=== PATIENT | female | born 1940 | race Caucasian/White ===

== ENCOUNTER 2017-10-30 08:00 | Outpatient (CLI) | payer MEDICARE, BC | END 2017-10-30 08:01 | disposition home or self-care (01) | LOC: BICMAMMO 08:00 | PROVIDERS: ATTEND Internal Medicine | DX: Z12.31 Encounter for screening mammogram for malignant neoplasm of breast (principal) | CPT/HCPCS: 77063 ==

== ENCOUNTER 2018-03-01 15:49 | Emergency (ER) | payer MEDICARE, BC ==
--- NOTE | 2018-03-01 18:47 | ULT ---
ULTRASOUND WITH DOPPLER DUPLEX VENOUS LOWER EXTREMITIES BILATERAL: 03/01/18 HISTORY: 78-year-old female with bilateral lower extremity pain, right worse than left, and right lower extrem ity edema. TECHNIQUE: Color flow Doppler, spectral waveform analysis of pulsed Doppler, and williamson-scale imaging with jimmy dann and augmentation, were used to evaluate the bilateral common femoral, femoral, popliteal, slip caster ior tibial, and superficial femoral, veins; and the proximal portions of the profunda femoral and gre ater saphenous, veins. FINDINGS: There is normal compressibility, demonstration of blood flow by color Doppler and pulsed Doppler, and response to augmentation, in all interrogated veins. There is thrombus causing noncompressibility, a bsence of blood flow, and expansion, of a superficial vein in the right medial calf. IMPRESSION: 1. No deep vein thrombosis in the bilateral lower extremities. 2. Positive for superficial thrombophlebitis at the right calf. jn[] POS: [facility]
== END 2018-03-01 18:50 | disposition home or self-care (01) ==
LOC: ERS 15:49
DX: I80.01 Phlebitis and thrombophlebitis of superficial vessels of right lower extremity (principal); E11.9 Type 2 diabetes mellitus without complications; I10 Essential (primary) hypertension; F32.9 Major depressive disorder, single episode, unspecified; Z79.899 Other long term (current) drug therapy; Z79.82 Long term (current) use of aspirin
CPT/HCPCS: 93970

== ENCOUNTER 2018-10-26 14:35 | Outpatient (CLI) | payer MEDICARE, BC ==
--- NOTE | 2018-10-26 16:01 | MRI ---
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 Right shoulder pain off and on for several years, getting worse. TECHNIQUE: Multiplanar, multisequence MRI exam of right shoulder performed. FINDINGS: Marked AC joint arthrosis changes are noted with some prominent subchondral cystic changes. Small amy unt of subacromial bursal fluid. There is a somewhat irregular full thickness tear of the supraspinat us tendon insertion region measuring approximately 1.0 cm transversely without significant associated retraction. There is some associated supraspinatus and infraspinatus tendinopathy. The biceps tendon is somewhat thinned and has almost a bilobed appearance as it exits the bicipital groove and extendi ng interarticularly, possibly a partial thickness split-type tear. Labrum is poorly defined and blunt ed, evidence for degenerative fraying or degenerative type labral tear. Minimal glenoid subchondral c ystic changes are noted. Rotator cuff muscles demonstrate mild supraspinatus muscle volume loss. IMPRESSION: 1. 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 2. Irregular full thickness tear of the supraspinatus tendon insertion region without significant re traction. 3. Blunting and indistinction of the superior labrum. 4. Possible at least partial thickness split-type tear of the biceps tendon as it exits the bicipita l groove extending interarticularly. 5. Minimal glenoid subchondral cystic changes. POS: [facility]
== END 2018-10-26 14:36 | disposition home or self-care (01) ==
LOC: BICMRI 14:35
PROVIDERS: ATTEND Orthopaedic Surgery
DX: M75.101 Unspecified rotator cuff tear or rupture of right shoulder, not specified as traumatic (principal); M19.011 Primary osteoarthritis, right shoulder

== ENCOUNTER 2018-11-01 13:26 | Outpatient (CLI) | payer MEDICARE, BC | END 2018-11-01 13:27 | disposition home or self-care (01) | LOC: BICMAMMO 13:26 | PROVIDERS: ATTEND Internal Medicine | DX: Z12.31 Encounter for screening mammogram for malignant neoplasm of breast (principal) | CPT/HCPCS: 77063; 77067 ==

== ENCOUNTER 2019-09-27 12:28 | Day surgery (SDC) | payer MEDICARE, BC ==
[2019-09-26 14:15] VITALS: BMI 28.0
[2019-09-27] MEDS ORDERED: Sodium Bicarbonate 2.5 MEQ/5 ML VIAL ONE (12:39)
[2019-09-27] MEDS ORDERED: Lidocaine 1% PF 5 ML VIAL ONE (12:39)
[2019-09-27 14:21] VITALS: BP 149/62; TEMP 98.2
--- NOTE | 2019-09-27 15:20 | ULT ---
ULTRASOUND-GUIDED FINE-NEEDLE ASPIRATION BIOPSY THYROID: DATE: 09/27/2019 HISTORY: 79-year-old female with right thyroid nodule. TECHNIQUE: Patient has allergy to multiple different medications, including lidocaine. She described symptoms th at appears to have been laryngospasm after prior lidocaine injection for dental procedure. After lengthy discussion with her, the patient agreed to have the biopsy performed without local anesthetic . Anterior skin of neck was prepared and draped in usual sterile fashion. Under ultrasound guidance, a series of 4 separate 25 gauge needles mounted on 4 separate 5 mL syringes were used to as pirate the large dominant nodule in the right lobe of the thyroid gland. Each sample was given to the chemical laboratory assistant. Patient tolerated procedure well. No complications. IMPRESSION: Technically successful 25-gauge fine-needle aspiration biopsy x4 of the large dominant right thyroid nodule.
== END 2019-09-27 14:05 | disposition home or self-care (01) ==
LOC: ULT 12:28
PROVIDERS: ATTEND Otolaryngology Plastic Surgery within the Head & Neck
DX: E04.1 Nontoxic single thyroid nodule (principal); E89.0 Postprocedural hypothyroidism; I10 Essential (primary) hypertension; E78.00 Pure hypercholesterolemia, unspecified; E11.9 Type 2 diabetes mellitus without complications; I48.92 Unspecified atrial flutter; J34.89 Other specified disorders of nose and nasal sinuses; J45.909 Unspecified asthma, uncomplicated; K21.9 Gastro-esophageal reflux disease without esophagitis; M06.9 Rheumatoid arthritis, unspecified; Z88.0 Allergy status to penicillin; Z88.1 Allergy status to other antibiotic agents; Z88.2 Allergy status to sulfonamides; Z88.7 Allergy status to serum and vaccine; Z88.8 Allergy status to other drugs, medicaments and biological substances; Z91.041 Radiographic dye allergy status; Z79.82 Long term (current) use of aspirin; Z79.84 Long term (current) use of oral hypoglycemic drugs; Z79.899 Other long term (current) drug therapy
CPT/HCPCS: 60100; 76942; 88173; J2001

== ENCOUNTER 2019-11-04 13:51 | Outpatient (CLI) | payer MEDICARE, BC ==
--- NOTE | 2019-11-04 15:34 | MMO ---
Bilateral MAMMO Bilat Screen [facility]. CLINICAL HISTORY: Patient is 79 years old and is seen for screening. The patient has no family history of breast cancer. The patient has no personal history of cancer. The patient has a history of left Excisional Biopsy in 2007 - benign. VIEWS: The views performed were: bilateral craniocaudal with tomosynthesis and bilateral mediolateral oblique with tomosynthesis. FILMS COMPARED: The present examination has been compared to prior imaging studies performed at [facility] on 10/26/2015, 10/27/2016, 10/30/2017 and 11/01/2018. This study has been interpreted with the assistance of computer-aided detection. MAMMOGRAM FINDINGS: The breasts are heterogeneously dense, which could obscure a lesion on mammography. There is a new round mass measuring 6 millimeters seen in the CC view only seen in the outer region of the right breast. In the left breast, there are no suspicious masses, calcifications or areas of architectural distortion. IMPRESSION: NEW MASS IN THE RIGHT BREAST REQUIRES ADDITIONAL EVALUATION. ADDITIONAL IMAGING. THE RESULTS OF THIS EXAM WERE SENT TO THE PATIENT. ACR BI-RADS Category 0 - Incomplete: Need additional imaging evaluation. [facility] will notify the patient of the need for additional imaging services. MAMMOGRAPHY NOTE: 1. A negative mammogram report should not delay a biopsy if a dominant of clinically suspicious mass is present. 2. Approximately 10% to 15% of breast cancers are not detected by mammography. 3. Adenosis and dense breasts may obscure an underlying neoplasm. Reported by: HILARIO CLEANING MD Electonically Signed: [id number]
== END 2019-11-04 13:52 | disposition home or self-care (01) ==
LOC: BICMAMMO 13:51
PROVIDERS: ATTEND Internal Medicine
DX: Z12.31 Encounter for screening mammogram for malignant neoplasm of breast (principal); Z91.89 Other specified personal risk factors, not elsewhere classified; N63.10 Unspecified lump in the right breast, unspecified quadrant
CPT/HCPCS: 77063; 77067

== ENCOUNTER 2019-11-14 13:37 | Outpatient (CLI) | payer MEDICARE, BC ==
--- NOTE | 2019-11-14 14:10 | MMO ---
Right Breast MAMMO Unilat Diag [facility]. CLINICAL HISTORY: Patient is 79 years old and is seen for diagnostic exam. The patient has no family history of breast cancer. The patient has no personal history of cancer. The patient has a history of left Excisional Biopsy in 2007 - benign. VIEWS: The views performed were: right craniocaudal with tomosynthesis; right mediolateral oblique with tomosynthesis; and right mediolateral with tomosynthesis. FILMS COMPARED: The present examination has been compared to prior imaging studies performed at [facility] on 10/27/2016, 10/30/2017, 11/01/2018 and 11/04/2019. This study has been interpreted with the assistance of computer-aided detection. MAMMOGRAM FINDINGS: The breast is heterogeneously dense, which could obscure a lesion on mammography. There is an intramammary lymph node seen in the outer region of the right breast. This represents the screening finding. There are no suspicious masses, suspicious calcifications, or new areas of architectural distortion. IMPRESSION: THERE IS NO MAMMOGRAPHIC EVIDENCE OF MALIGNANCY. A ROUTINE FOLLOW-UP MAMMOGRAM IN 1 YEAR IS RECOMMENDED. THE RESULTS OF THIS EXAM WERE SENT TO THE PATIENT. ACR BI-RADS Category 2 - Benign finding MAMMOGRAPHY NOTE: 1. A negative mammogram report should not delay a biopsy if a dominant of clinically suspicious mass is present. 2. Approximately 10% to 15% of breast cancers are not detected by mammography. 3. Adenosis and dense breasts may obscure an underlying neoplasm. Reported by: NICHO MEDINA MD Electonically Signed: [id number]
== END 2019-11-14 13:38 | disposition home or self-care (01) ==
LOC: BICMAMMO 13:37
PROVIDERS: ATTEND Internal Medicine
DX: N63.10 Unspecified lump in the right breast, unspecified quadrant (principal)
CPT/HCPCS: 77065; G0279

== ENCOUNTER 2020-11-09 14:18 | Outpatient (CLI) | payer MEDICARE, OTHER ==
--- NOTE | 2020-11-09 14:49 | MMO ---
Bilateral MAMMO Bilat Diag [facility]. CLINICAL HISTORY: Patient is 80 years old and is seen for diagnostic exam. The patient has no family history of breast cancer. The patient has no personal history of cancer. The patient has a history of left Excisional Biopsy in 2007 - benign. VIEWS: The views performed were: bilateral craniocaudal with tomosynthesis; bilateral mediolateral oblique with tomosynthesis; and bilateral mediolateral with tomosynthesis. FILMS COMPARED: The present examination has been compared to prior imaging studies performed at [facility] [place] on 10/30/2017, 11/01/2018, 11/04/2019 and 11/14/2019. This study has been interpreted with the assistance of computer-aided detection. MAMMOGRAM FINDINGS: The breasts are heterogeneously dense, which could obscure a lesion on mammography. There are no suspicious masses, suspicious calcifications, or new areas of architectural distortion. IMPRESSION: THERE IS NO MAMMOGRAPHIC EVIDENCE OF MALIGNANCY. A ROUTINE FOLLOW-UP MAMMOGRAM IN 1 YEAR IS RECOMMENDED. THE RESULTS OF THIS EXAM WERE SENT TO THE PATIENT. ACR BI-RADS Category 1 - Negative MAMMOGRAPHY NOTE: 1. A negative mammogram report should not delay a biopsy if a dominant of clinically suspicious mass is present. 2. Approximately 10% to 15% of breast cancers are not detected by mammography. 3. Adenosis and dense breasts may obscure an underlying neoplasm. Reported by: JANKI PEREZ MD Electonically Signed: [id number]
== END 2020-11-09 14:19 | disposition home or self-care (01) ==
LOC: BICMAMMO 14:18
PROVIDERS: ATTEND Internal Medicine
DX: N64.4 Mastodynia (principal)
CPT/HCPCS: 77066; G0279

== ENCOUNTER 2023-01-09 14:16 | Outpatient (CLI) | payer MEDICARE, OTHER | END 2023-01-09 14:17 | disposition home or self-care (01) | LOC: BICMAMMO 14:16 | PROVIDERS: ATTEND Internal Medicine | DX: Z12.31 Encounter for screening mammogram for malignant neoplasm of breast (principal); Z98.890 Other specified postprocedural states; R92.8 Other abnormal and inconclusive findings on diagnostic imaging of breast | CPT/HCPCS: 77063; 77067 ==

== ENCOUNTER 2023-01-30 13:50 | Outpatient (CLI) | payer OTHER | END 2023-01-30 13:51 | disposition home or self-care (01) | LOC: BICMAMMO 13:50 | PROVIDERS: ATTEND Internal Medicine | DX: N64.89 Other specified disorders of breast (principal); N60.02 Solitary cyst of left breast | CPT/HCPCS: 76642; 77065; G0279 ==

== ENCOUNTER 2024-01-18 15:25 | Outpatient (CLI) | payer OTHER | END 2024-01-18 15:26 | disposition home or self-care (01) | LOC: BICMAMMO 15:25 | PROVIDERS: ATTEND Family Medicine | DX: Z12.31 Encounter for screening mammogram for malignant neoplasm of breast (principal); Z91.89 Other specified personal risk factors, not elsewhere classified; Z80.3 Family history of malignant neoplasm of breast | CPT/HCPCS: 77063; 77067 ==